=== PATIENT | male | born 1945 | race Caucasian/White ===

== ENCOUNTER 2021-02-26 14:56 | Inpatient (IN) | payer OTHER ==
[~2021-02-26] VITALS: Ht 180.3 cm; Wt 59.2 kg
[~2021-02-26 14:56] MED LIST: ASPIRIN81 MG PO; AUGMENTIN 875-1 EACH PO; AZITHROMYCIN250 MG PO; BUSPAR5 MG PO; DALIRESP500 MCG PO; FLOMAX0.4 MG PO; FOLIC ACID1 MG PO; LEVAQUIN750 MG PO; LEXAPRO20 MG PO; MEDROL 4MG DOSEP4 MG PO; NOVOLOG FL100 UNIT/1 SC; NYSTATIN SUSP1 ML/ML PO; PERCOCET 10/321 EACH PO; PREDNISONE 10MG10 MG PO; QUETIAPINE FUMA50 MG PO; ROBAXIN750 MG PO; SPIRIVA RESPIMAT4 G1 INH; SYMBICORT 80-10.2 GM INH; SYNTHROID25 MCG PO; SYNTHROID50 MCG PO; TESSALON PERLE100 MG PO; VENTOLIN HFA IN18 GM INH
[2021-02-26 15:45] LABS: ALBUMIN 3.4 g/dL (3.4-5.0); BASOPHIL 0.3 % (0-2); BILIRUBIN - TOTAL 0.6 mg/dL (0.2-1.0); BUN/CREAT RATIO (CALC) 36.6 RATIO; CREATININE 0.41 mg/dL (0.67-1.17); EOSINOPHIL 0.1 % (0-7); GLOBULIN (CALCULATION) 4.2 g/dL; HCT 42.4 % (42.0-52.0); HGB 13.7 g/dl (13.2-18.0); LYMPHOCYTE 2.3 % (15-48); MCH 31.9 pg (25.0-31.0); MCHC 32.3 g/dL (32.0-36.0); MCV 98.8 fL (78.0-100.0); MONOCYTE 8.4 % (0-12); MPV 8.6 fL (6.0-9.5); NEUTROPHIL 88.5 % (41-80); NRBC 0; PLT 203 K/uL (150-400); POTASSIUM 4.2 mmol/L (3.5-5.1); RBC 4.29 M/uL (4.70-6.00); RDW 13.8 % (11.5-14.0); TOTAL PROTEIN 7.6 g/dL (6.4-8.2)
[2021-02-26 15:47] LABS: WBC 12.2 K/uL (4.0-10.5)
[2021-02-26 15:59] LABS: LACTIC ACID 4.7 mmol/L (0.4-1.9)
[2021-02-26 18:33] LABS: BILIRUBIN NEGATIVE (NEGATIVE); BLOOD NEGATIVE Ery/uL (NEGATIVE); CLARITY CLEAR (CLEAR); COLOR YELLOW (YELLOW); GLUCOSE (U) NORMAL (NORMAL); LEUKOCYTES NEGATIVE Leu/uL (NEGATIVE); NITRITE NEGATIVE (NEGATIVE); PROTEIN 1+ mg/dL (NEGATIVE); SPECIFIC GRAVITY 1.025 (1.001-1.030); UROBILINOGEN 0.2 mg/dL (0.2-1.0); pH 5.5 (5.0-9.0)
[2021-02-26 18:53] LABS: AMMONIUM BUIRATE CRYSTALS TRACE; BACTERIA TRACE; URINARY WBC RARE
[2021-02-26 20:29] LABS: MAGNESIUM 1.7 mg/dL (1.8-2.4); PHOSPHORUS 4.3 mg/dL (2.6-4.7)
[2021-02-27 04:26] LABS: BASOPHIL 0.3 % (0-2); EOSINOPHIL 0 % (0-7); HGB 12.4 g/dl (13.2-18.0); LYMPHOCYTE 1.6 % (15-48); MCH 32.1 pg (25.0-31.0); MCHC 33.5 g/dL (32.0-36.0); MCV 95.9 fL (78.0-100.0); MONOCYTE 3.9 % (0-12); MPV 8.6 fL (6.0-9.5); NEUTROPHIL 93.8 % (41-80); NRBC 0; PLT 188 K/uL (150-400); RBC 3.86 M/uL (4.70-6.00); RDW 13.5 % (11.5-14.0)
[2021-02-27 04:28] LABS: WBC 10.4 K/uL (4.0-10.5)
[2021-02-27 04:50] LABS: ALBUMIN 2.8 g/dL (3.4-5.0); BILIRUBIN - TOTAL 0.6 mg/dL (0.2-1.0); BUN/CREAT RATIO (CALC) 36.8 RATIO; CREATININE 0.38 mg/dL (0.67-1.17); GLOBULIN (CALCULATION) 4.2 g/dL; MAGNESIUM 1.8 mg/dL (1.8-2.4); POTASSIUM 4.3 mmol/L (3.5-5.1)
--- NOTE | 2021-02-28 13:31 | NUR ---
02/28/21 Mr. Otero lives with his spouse. He has home 02 at 4 L, cane, and a wc (doesn't fit in the house). A referral was made to [facility] via [employer]. Affliation is understood. Please notify [facility] at discharge at [phone]. - Mr. Kessler has experienced suicidal thoughts in the past. He denies intentions or attempts. [facility] was requested to include mental health services. - Insurance will not pay for an 02 mask unless liter flow is 5 l or greater.
[2021-03-02 08:45] LABS: BUN/CREAT RATIO (CALC) 48.8 RATIO; CREATININE 0.43 mg/dL (0.67-1.17); POTASSIUM 4.2 mmol/L (3.5-5.1)
[2021-03-02 08:57] LABS: BASOPHIL 0.2 % (0-2); EOSINOPHIL 0 % (0-7); HCT 40.4 % (42.0-52.0); HGB 13.5 g/dl (13.2-18.0); LYMPHOCYTE 2.9 % (15-48); MCH 32.2 pg (25.0-31.0); MCHC 33.4 g/dL (32.0-36.0); MCV 96.4 fL (78.0-100.0); MONOCYTE 5.6 % (0-12); MPV 8.5 fL (6.0-9.5); NRBC 0; PLT 206 K/uL (150-400); RBC 4.19 M/uL (4.70-6.00); RDW 13.2 % (11.5-14.0); WBC 8.9 K/uL (4.0-10.5)
[2021-03-02 09:00] LABS: NEUTROPHIL 90.5 % (41-80)
--- NOTE | 2021-03-03 15:08 | NUR ---
0755 DR. BERNARDO HERE TO REPLACE THE JTUBE AT THE [facility]. REQUEST THE AN ABDOMINAL BINDER BE PLACED OVER THE JTUBE SITES TO PREVENT PULLING OUT THE TUBE AGAIN. 0830 ABDOMINAL BINDER PLACED ON THE PATIENT. NEW ORDERS TO GET A CT WITH CONTRAST TO CHECK PLACEMENT BEFORE USING THE TUBE.KUB WAS DONE WITH CONTRAST AND THE JTUBE IS READY TO RESTART THE TUBE FEEDINGS PER DR. HARGROVE.
[2021-03-04] MEDS ORDERED: MEDROL 4MG DOSEP4 MG PO (12:11)
--- NOTE | 2021-03-04 13:15 | NUR ---
03/04/21 [facility] was notified of discharge. Report given to MS Janes Shultz RN.
== END 2021-03-04 13:35 | disposition home health service (06) | DRG 871 ==
LOC: FER 14:56 → FTCU 19:20 → FER 19:20 → FMS 03-01 09:03 → FTCU 03-01 09:06 → FMS 03-01 09:06
PROVIDERS: Allergy & Immunology Allergy; Emergency Medicine; Nurse Practitioner; ADMIT Internal Medicine
DX: A41.9 Sepsis, unspecified organism (principal); J18.9 Pneumonia, unspecified organism; J96.21 Acute and chronic respiratory failure with hypoxia; J96.22 Acute and chronic respiratory failure with hypercapnia; J44.0 Chronic obstructive pulmonary disease with (acute) lower respiratory infection; J44.1 Chronic obstructive pulmonary disease with (acute) exacerbation; Z68.1 Body mass index [BMI] 19.9 or less, adult; Z20.822 Contact with and (suspected) exposure to COVID-19; I10 Essential (primary) hypertension; G47.33 Obstructive sleep apnea (adult) (pediatric); M54.5 Low back pain; R00.0 Tachycardia, unspecified; R63.6 Underweight; F41.9 Anxiety disorder, unspecified; Z79.899 Other long term (current) drug therapy; Z79.82 Long term (current) use of aspirin; Z80.0 Family history of malignant neoplasm of digestive organs
CPT/HCPCS: 36415; 36600; 71045; 71275; 80048; 80053; 81001; 82150; 82803; 82962; 83605; 83735; 83880; 84100; 84145; 84484; 85025; 87040; 87088; 93005; 94010; 94640; 94664; 94667; 94668; 94760; 94762; 97162; 97166; 97530-GP; 97535; A4216; J0456; J0696; J1650; J2543; J2930; J3475; J7050; Q9967; U0002